=== PATIENT | female | born 1950 | race Caucasian/White ===

== ENCOUNTER 2023-05-17 22:14 | Emergency (ER) | payer MEDICARE, MEDICAID, SELFPAY ==
[2023-05-17 22:15] VITALS: BP 187/99; PULSE 70; RESP 16; TEMP 36.2; O2SAT 99; BMI 29.8
--- NOTE | 2023-05-17 22:55 | RAD_ITS ---
INDICATION: chest pain EXAMINATION/TECHNIQUE: X-RAY - XR Chest 1 View COMPARISON: FINDINGS: LINES/DEVICES: None. LUNGS: No consolidation, edema or effusion. No pneumothorax. MEDIASTINUM AND CARDIOVASCULAR STRUCTURES: Cardiac silhouette not enlarged. Central airways and mediastinal contour are unremarkable. BONES AND SOFT TISSUES: Unremarkable. RAD/Chest 1 View (Portable) IMPRESSION: No radiographic evidence of acute cardiopulmonary disease. Electronically Signed: Tommie Escalona DO at 23:06 EDT ,
--- NOTE | 2023-05-17 23:39 | EX.ED.DYSGE1 ---
HPI History of Present Illness Chief Complaint: Nausea/Vomiting Informant: patient Narrative Narrative: 72-year-old female presenting to the emergency room with vomiting. Patient states she ate some steak and then had some Magnide. She states she has developed some hiccups and then vomited. After several emesis she states that she vomited up a large piece of steak. Then she tried to drink and again had hiccups and vomiting. This happened several more times but without drinking was basically throwing up saliva. She states she does not feel sick and the symptoms seem to be going away. No significant history of GERD. No history of esophageal food impaction hiatal hernia or esophageal stricture that she is aware of. PFSH PFSH Medical History no medical history Home Medications NK 05/17/23 [History Last Taken Unknown] Allergy/AdvReac Type Severity Reaction Status Date / Time Penicillins AdvReac BAD TASTE Verified 05/17/23 22:16 Surgical History no surgical history Social History Smoking Status: Former smoker ROS ROS ED Constitutional Constitutional ED: Denies chills or weight loss Eyes Eyes: Denies change in vision or diplopia ENT ENT ED: Denies ear pain, rhinorrhea or sore throat Cardiovascular Cardiovascular: Denies chest pain, orthopnea, palpitations or racing heartbeat Respiratory/Chest Respiratory/Chest: Denies cough, dyspnea or orthopnea Gastrointestinal Gastrointestinal: Denies abdominal pain, diarrhea, nausea or vomiting Genitourinary Genitourinary ED: Denies dysuria, hematuria or urinary frequency Musculoskeletal Musculoskeletal: Denies arthralgias or myalgias Integumentary Denies abscess or rash Neurologic Neurologic: Denies headache(s) or weakness Psychiatric Psychiatric: Denies anxiety, depression, suicidal ideation or suicidal thoughts Endocrine Endocrinology: Denies polydipsia, polyphagia or polyuria Allergic/Immunologic Allergic/Immunologic ED: Denies mouth swelling, tongue swelling or urticaria EXAM Physical Exam Const Vital Signs: 05/17/23 22:15 Temperature 97.2 F L Temperature Source Temporal Pulse Rate 70 Respiratory Rate 16 Blood Pressure 187/99 H Blood Pressure Mean 128 Pulse Ox 99 Oxygen Delivery Method Room Air Positive well nourished and well developed General Appearance ED: well developed HEENT Reports normocephalic, head/scalp atraumatic and moist mucous membranes Eyes PERRL and EOMs intact bilaterally Neck no lymphadenopathy, supple and no JVD Resp normal respiratory effort and clear to auscultation bilaterally Cardio regular rate, regular rhythm and no murmurs GI normal to inspection, nondistended, normoactive bowel sounds and non-tender Palpation: soft Back/Spine no CVA tenderness and normal ROM Extremity normal to inspection General Extremety ED: Negative for edema General Extremity: Negative for edema Neuro oriented x3 and CN's II-XII intact bilaterally Sensorium / Orientation: alert Motor Exam: strength 5/5 throughout Psych mental status grossly normal Mood & Affect: Negative for depressed or tearful Skin no rashes or lesions noted and no wounds MDM MDM MDM Narrative Medical decision making narrative: Patient appears asymptomatic on my examination. She is tolerating the Coke without difficulty. Patient was advised should this happen again I would recommend an endoscopy as an outpatient as long as symptoms have resolved. However if she is unable to tolerate p.o. she would need to come to emergency and possibly have emergent endoscopy. Radiography Diagnostic Testing: Clinical Impression(s) from Imaging Studies Chest X-Ray 05/17/23 22:55 IMPRESSION: No radiographic evidence of acute cardiopulmonary disease. Electronically Signed: Tommie Escalona DO at 23:06 EDT Reading Location ID and State: [facility] / [place] Tel [phone], Service support , Discharge Plan Triage Chief Complaint: Nausea/Vomiting ED Provider: Ld Pascual Dx/Rx/DC Orders Clinical Impression: Food impaction of esophagus Instructions: ED Esophageal Foreign Body, Resolved Prescriptions: No Action NK Primary Care Provider: Care Physician,No Primary Referrals: Care Physician,No Primary [Primary Care Provider] - Disposition Disposition: Home, Self Care
[2023-05-17 23:47] VITALS: BP 187/99; PULSE 70; RESP 16; O2SAT 99
== END 2023-05-17 23:48 | disposition home or self-care (01) ==
PROVIDERS: Emergency Provider Emergency Medicine; Visit Provider Emergency Medicine
DX: T18.108A Unspecified foreign body in esophagus causing other injury, initial encounter (principal); Z87.891 Personal history of nicotine dependence; X58.XXXA Exposure to other specified factors, initial encounter
CPT/HCPCS: 71045; 99282

== ENCOUNTER 2023-11-17 16:56 | Emergency (ER) | payer MEDICARE, MEDICAID, SELFPAY ==
[2023-11-17 16:56] VITALS: BP 145/77; PULSE 72; RESP 18; TEMP 36.2; O2SAT 97
--- NOTE | 2023-11-17 17:12 | EDS_ITS ---
HPI History of Present Illness Chief Complaint: Lower Extremity Injury Detail of Chief Complaint: Right knee pain Informant: patient Onset/Context/Timing Onset: Days Context: Gradual Onset Narrative Narrative: Patient presents secondary to right knee pain and swelling. She noted right knee pain 2 days ago that has been gradual in onset. She states she feels most the pain over the posterior aspect of the knee. No definite injury, but patient is currently packing to move. No history of prior knee surgery or injections. No history of blood clots. [facility] Medical History (Updated 11/17/23 @ 18:[address] Radhika Christopher MD) Depression Home Medications NK 05/17/23 [History Last Taken Unknown] Allergy/AdvReac Type Severity Reaction Status Date / Time Penicillins AdvReac BAD TASTE Verified 11/17/23 16:58 Social History Smoking Status: Former smoker ROS ROS ED Constitutional Constitutional ED: Denies chills or fever(s) Eyes Eyes: Denies discharge from eye(s) ENT ENT ED: Denies discharge from eye(s), rhinorrhea or sore throat Cardiovascular Cardiovascular: Denies chest pain Respiratory/Chest Respiratory/Chest: Denies cough or dyspnea Gastrointestinal Gastrointestinal: Denies abdominal pain, nausea or vomiting Musculoskeletal Musculoskeletal: Reports extremity pain; Denies back pain Integumentary Denies Abrasions or rash Neurologic Neurologic: Denies headache(s) or weakness Psychiatric Psychiatric: Denies anxiety or depression Allergic/Immunologic Allergic/Immunologic ED: Denies lip swelling or urticaria EXAM Physical Exam Const Vital Signs: 11/17/23 16:56 Temperature 97.2 F L Temperature Source Temporal Pulse Rate 72 Respiratory Rate 18 Blood Pressure 145/77 H Blood Pressure Mean 99 Pulse Ox 97 Oxygen Delivery Method Room Air Positive well nourished and well developed General Appearance ED: well developed HEENT Reports moist mucous membranes Chest Wall inspection of chest normal and palpation of chest normal Resp normal respiratory effort and clear to auscultation bilaterally Cardio regular rate and regular rhythm GI non-tender Palpation: soft Extremity Extremity Narrative: Edema noted over the anterior right knee with tenderness just proximal to the knee joint. No erythema or excessive warmth. Tenderness to the popliteal fossa with no palpable masses. No calf tenderness or edema around the ankle. Slight decreased range of motion secondary to pain. Neuro oriented x3 and moves all extremities Skin Rashes: no rashes MDM MDM MDM Narrative Medical decision making narrative: Patient given dose of Innis. Right knee x-rays obtained to evaluate for fracture, subluxation, dislocation, fluid collection. Radiography Diagnostic Testing: Clinical Impression(s) from Imaging Studies Knee X-Ray 11/17/23 17:16 IMPRESSION: Degenerative arthrosis. Effusion, as described above. Electronically Signed: Kris Vitale MD at 18:00 EDT , Treatment and Re-Evaluation Narrative: Right knee x-ray per my interpretation reveals arthritic changes. Small joint effusion. No evidence of fracture. Radiology interpretation reviewed and nabil carroll. Test results discussed with patient. She has been bending more and going up and down steps more as she is moving. I think this caused her inflammation and pain. Beni wrap will be applied and she will be given crutches that she may use, but weight-bear as tolerated. She will use Tylenol, ibuprofen, rest, and ice. She is referred to orthopedics for follow-up as needed. Return instructions alistair nieto. Discharge Plan Triage Chief Complaint: Lower Extremity Injury ED Provider: Radhika Christopher Dx/Rx/DC Orders Clinical Impression: Right knee sprain, Osteoarthritis, Joint effusion Instructions: ED Knee Effusion, ED Knee Sprain, ED Osteoarthritis Prescriptions: No Action NK Primary Care Provider: Care Physician,No Primary Referrals: Surendra Floyd DO [[facility] Staff - Active Staff] - 1 Week if not improving [facility] Doctor,Out of [Non-Staff] - Disposition Disposition: Home, Self Care
[2023-11-17] MEDS: HYDROcodone Bitartrate/Apap 5/325 Tablet PO (17:16)
--- NOTE | 2023-11-17 17:16 | RAD_ITS ---
STUDY: XR Knee Complete 4 Views or More 11/17/2023 5:58 PM REASON FOR EXAM: Female, 73 years old. PAIN TO POSTERIOR KNEE AND LROM, NKI TECHNIQUE: XR Knee Complete 4 Views or More RIGHT COMPARISON: None FINDINGS: Normal visualized distal femur. Normal visualized proximal tibia and fibula. Normal proximal tibiofibular articulation. There is mild degenerative arthrosis of the medial femorotibial compartment. There is mild degenerative arthrosis of the lateral femorotibial compartment. There is mild degenerative arthrosis of the patellofemoral articulation. There is a soft tissue prominence in the suprapatellar region suggesting a small volume joint effusion. There is calcification in the joint space which may signify calcium pyrophosphate deposition disease. RAD/Knee 4 or More Views IMPRESSION: Degenerative arthrosis. Effusion, as described above. Electronically Signed: Kris Vitale MD at 18:00 EDT ,
[2023-11-17 18:37] VITALS: BP 152/81; PULSE 81; RESP 20; TEMP 36.4; O2SAT 97
== END 2023-11-17 18:37 | disposition home or self-care (01) ==
PROVIDERS: Emergency Provider Emergency Medicine; Visit Provider Emergency Medicine
DX: S83.91XA Sprain of unspecified site of right knee, initial encounter (principal); M17.11 Unilateral primary osteoarthritis, right knee; M25.461 Effusion, right knee; Z87.891 Personal history of nicotine dependence; X58.XXXA Exposure to other specified factors, initial encounter
CPT/HCPCS: 73564; 99283